=== PATIENT | female | born 1985 | race Caucasian/White ===

== ENCOUNTER 2020-10-22 14:47 | Outpatient (CLI) | payer OTHER, SELFPAY ==
--- NOTE | 2020-10-25 11:19 | WPDHOLTEREM ---
Holter/Event Monitor Holter/Event Monitor Date of procedure: 10/22/20 Procedure Type: 48 hour holter monitor Indications: Tachycardia Conclusion: 1. 48 hour holter monitor on 10/22/20. 2. Underlying rhythm is sinus rhythm. HR range 52-121 bpm; average HR 79 bpm. 3. There are 5 premature supraventricular complexes. No supraventricular tachycardia. 4. There are 21 premature ventricular complexes. No ventricular tachycardia. 5. No sinoatrial or atrioventricular blocks. No significant pauses greater than 2 seconds. 6. Patient reports symptoms of heart fluttering and panicky which demonstrate sinus rhythm, HR range 77-82 bpm and 1 PAC.
== END 2020-10-22 14:48 | disposition home or self-care (01) ==
PROVIDERS: PCP Physician Assistant; Visit Provider Physician Assistant
DX: R00.0 Tachycardia, unspecified (principal)
CPT/HCPCS: 93225; 93226